=== PATIENT | male | born 1970 | race Hispanic/Latino ===

== ENCOUNTER 2017-04-19 19:29 | Inpatient (IN) | payer BC ==
[~2017-04-19] VITALS: Ht 172.7 cm; Wt 114.9 kg
[2017-04-19] MEDS ORDERED: IPRATROPIUM/ALBUTEROL SULFATE 3 ML SOLUTION IH ONE (19:45)
[2017-04-19] MEDS ORDERED: OSELTAMIVIR PHOSPHATE 75 MG CAP ONE (19:46)
[2017-04-19] MEDS ORDERED: SODIUM CHLORIDE 0.9% 1000ML 1,000 ML IV ONE (19:46)
[2017-04-19 19:52] LABS: ABG BASE EXCESS -1.5 mmol/L (-2.0-3.0); ABG HCO3 20.5 mmol/L (21.0-28.0); ABG OXYGEN SATURATION 92.2 % (95.0-99.0); ABG PCO2 28 mmHg (35-48)
[2017-04-19 20:31] LABS: BASOPHILS % (AUTO) 0.2 % (0.0-5.0); HEMATOCRIT 36.8 % (42-54); LYMPHOCYTES % (AUTO) 29.2 % (21.0-51.0); MEAN CORPUSCULAR HEMOGLOBIN 34.6 pg (27.0-33.0); MEAN CORPUSCULAR HGB CONC 35.2 g/dL (32.0-36.0); MEAN CORPUSCULAR VOLUME 98.3 fL (79-99); NEUTROPHILS % (AUTO) 51.6 % (40.0-77.0); PLATELET COUNT (AUTO) 78 K/uL (130-400); RED BLOOD CELL COUNT(AUTO) 3.74 MIL/uL (4.50-6.20); RED CELL DISTRIBUTION WIDTH 15.5 % (11.0-15.5)
[2017-04-19 20:36] LABS: ALBUMIN 2.8 g/dL (3.5-5.0); BILIRUBIN,TOTAL 0.8 mg/dL (0.2-1.0); CREATININE 1.4 mg/dL (0.5-1.5); TOTAL PROTEIN, SERUM 6.5 g/dL (6.0-8.3)
[2017-04-19] MEDS ORDERED: POTASSIUM CHLORIDE 20 MEQ ERTAB PO ONE (20:42)
[2017-04-19 21:00] LABS: B-TYPE NATRIURETIC PEPTIDE 22 pg/mL (0-100)
[2017-04-19] MEDS ORDERED: IOPAMIDOL-370 100 ML VIAL IV ONE (21:35)
[2017-04-19] MEDS ORDERED: LEVOFLOXACIN 500 MG/D5W 100 ML 100 ML ONE (21:46)
[2017-04-19] MEDS ORDERED: VANCOMYCIN 1GM+NS 250ML 250 ML IV ONE (21:47)
[2017-04-19] MEDS ORDERED: ONDANSETRON HCL 4 MG/2 ML VIAL IVP PRN (23:45)
[2017-04-19] MEDS ORDERED: POTASSIUM CHLORIDE 10% ELIXIR 20 MEQ/15 ML UDCUP PO PRN (23:45)
[2017-04-19] MEDS ORDERED: POTASSIUM CHLORIDE 20 MEQ ERTAB PO PRN (23:45)
[2017-04-19] MEDS ORDERED: LIDOCAINE HCL-MPF 1% 2ML VIAL IJ PRN (23:45)
[2017-04-19] MEDS ORDERED: POTASSIUM CHLORIDE 20MEQ/100ML 100 ML IV PRN (23:45)
[2017-04-19] MEDS ORDERED: SODIUM CHLORIDE 0.9% 1000ML 1,000 ML IV SCH (23:45)
[2017-04-19] MEDS ORDERED: GUAIFENESIN-DM 200/20 MG 10 ML PO PRN (23:45)
[2017-04-19] MEDS ORDERED: CLONIDINE HCL 0.1 MG TABLET PO PRN (23:45)
[2017-04-19] MEDS ORDERED: ACETAMINOPHEN 325 MG TAB PO PRN ×2 (23:45)
[2017-04-20 00:30] VITALS: BP 118/67
[2017-04-20] MEDS: AZITHROMYCIN 500MG+NS 250ML 250 ML IV SCH ×2 (01:28→23:58)
[2017-04-20] MEDS: CEFTRIAXONE SODIUM 1 GM IVP SCH ×2 (01:28→23:58)
[2017-04-20 04:00] VITALS: BP 106/59
[2017-04-20 05:07] LABS: HEMATOCRIT 33.2 % (42-54); MEAN CORPUSCULAR HEMOGLOBIN 33.4 pg (27.0-33.0); MEAN CORPUSCULAR VOLUME 98.3 fL (79-99); PLATELET COUNT (AUTO) 49 K/uL (130-400); RED BLOOD CELL COUNT(AUTO) 3.37 MIL/uL (4.50-6.20); RED CELL DISTRIBUTION WIDTH 15.9 % (11.0-15.5); WHITE BLOOD COUNT (AUTO) 3.7 K/uL (4.8-10.8)
[2017-04-20 05:31] LABS: CREATININE 1.2 mg/dL (0.5-1.5); POTASSIUM 3.7 mmol/L (3.5-5.1)
[2017-04-20] MEDS ORDERED: SODIUM CHLORIDE 3% FOR INHALATION 4 ML/AMP VIAL.NEB IH ONE (07:21)
[2017-04-20 07:54] VITALS: BP 101/58
[2017-04-20 08:08] LABS: ABG BASE EXCESS -0.4 mmol/L (-2.0-3.0); ABG HCO3 22.8 mmol/L (21.0-28.0); ABG OXYGEN SATURATION 96.8 % (95.0-99.0); ABG PCO2 34 mmHg (35-48)
[2017-04-20] MEDS: FAMOTIDINE 20MG TAB 20 MG TAB PO SCH ×2 (08:45→20:26)
[2017-04-20] MEDS: OSELTAMIVIR PHOSPHATE 75 MG CAP PO SCH ×2 (08:45→20:26)
[2017-04-20 11:00] VITALS: BP 99/63
[2017-04-20] MEDS: IPRATROPIUM/ALBUTEROL SULFATE 3 ML SOLUTION IH SCH ×2 (13:18→21:36)
[2017-04-20 16:41] VITALS: BP 94/52
[2017-04-20 20:00] VITALS: BP 101/56
[2017-04-21] VITALS: BP 111/57
[2017-04-21 04:00] VITALS: BP 103/63
[2017-04-21 04:24] LABS: HEMATOCRIT 32.8 % (42-54); MEAN CORPUSCULAR HEMOGLOBIN 33.9 pg (27.0-33.0); MEAN CORPUSCULAR VOLUME 99.8 fL (79-99); PLATELET COUNT (AUTO) 41 K/uL (130-400); RED BLOOD CELL COUNT(AUTO) 3.29 MIL/uL (4.50-6.20); WHITE BLOOD COUNT (AUTO) 3.5 K/uL (4.8-10.8)
[2017-04-21 04:31] LABS: POTASSIUM 3.7 mmol/L (3.5-5.1)
[2017-04-21 07:00] VITALS: BP 113/62
[2017-04-21] MEDS: IPRATROPIUM/ALBUTEROL SULFATE 3 ML SOLUTION IH SCH ×2 (07:01→13:14)
[2017-04-21] MEDS: FAMOTIDINE 20MG TAB 20 MG TAB PO SCH (08:23)
[2017-04-21] MEDS: OSELTAMIVIR PHOSPHATE 75 MG CAP PO SCH (08:23)
[2017-04-21 11:00] VITALS: BP 101/53
[2017-04-21] MEDS ORDERED: LEVO500T2 PO (11:29)
[2017-04-21] MEDS ORDERED: OSEL75 PO (11:29)
[2017-04-21 16:00] VITALS: BP 100/59
== END 2017-04-21 18:05 | disposition home or self-care (01) | DRG 194 ==
LOC: EDH 19:29 → EDHIP 22:13 → 3CH 23:19
PROVIDERS: ADMIT Internal Medicine; ATTEND Internal Medicine
DX: J10.00 Influenza due to other identified influenza virus with unspecified type of pneumonia (principal); D61.818 Other pancytopenia; D69.59 Other secondary thrombocytopenia; C90.01 Multiple myeloma in remission; R09.02 Hypoxemia; E87.6 Hypokalemia; Z87.01 Personal history of pneumonia (recurrent); Z86.73 Personal history of transient ischemic attack (TIA), and cerebral infarction without residual deficits; Z28.21 Immunization not carried out because of patient refusal; Z79.899 Other long term (current) drug therapy
CPT/HCPCS: 36415; 36600; 71045; 71275; 80048; 80053; 80339; 82803; 82948; 83605; 83880; 84484; 85025; 85027; 85378; 87040; 87071; 87205; 93005; 93970; 94640; 94664; J0456; J0696; J1956; J3370; J7030; Q9967

== ENCOUNTER 2018-11-21 05:40 | Day surgery (SDC) | payer BC ==
[~2018-11-21] VITALS: Ht 167.6 cm; Wt 117.9 kg
[~2018-11-21 05:40] MED LIST: ACYC400T PO; ASPI-555 PO; DEXA4TAB PO; IXAZ4CAP PO; LENA10CA PO; SODIUM CHLORIDE 0.9% 1000ML 1,000 ML IV ONE
[2018-11-21 06:25] VITALS: BP 114/72
[2018-11-21 06:31] LABS: BASOPHILS % (AUTO) 0.4 % (0.0-5.0); EOSINOPHILS % (AUTO) 1.7 % (0.0-8.0); HEMATOCRIT 38.2 % (42-54); LYMPHOCYTES % (AUTO) 40.7 % (21.0-51.0); MEAN CORPUSCULAR HEMOGLOBIN 34.4 pg (27.0-33.0); MEAN CORPUSCULAR HGB CONC 34.1 g/dL (32.0-36.0); MEAN CORPUSCULAR VOLUME 100.8 fL (79-99); MONOCYTES % (AUTO) 14.6 % (3.0-13.0); NEUTROPHILS % (AUTO) 42.6 % (40.0-77.0); NUCLEATED RED BLOOD CELLS 0.1 % (0.0-0.19); PLATELET COUNT (AUTO) 116 K/uL (130-400); RED CELL DISTRIBUTION WIDTH 14.7 % (11.0-15.5); WHITE BLOOD COUNT (AUTO) 4.8 K/uL (4.8-10.8)
[2018-11-21] MEDS ORDERED: PROPOFOL 10 MG/ML 20ML VIAL IV ONE ×3 (06:38→08:00)
[2018-11-21] MEDS ORDERED: LIDOCAINE HCL 1% 20 ML VIAL ONE (06:38)
[2018-11-21 08:17] VITALS: BP 93/33
[2018-11-21 08:22] VITALS: BP 93/60
[2018-11-21 08:27] VITALS: BP 99/57
[2018-11-21 08:35] VITALS: BP 110/69
== END 2018-11-21 08:45 | disposition home or self-care (01) ==
LOC: DAH 05:40 → ENDO 05:40
PROVIDERS: ATTEND Internal Medicine
DX: K63.5 Polyp of colon (principal); K57.30 Diverticulosis of large intestine without perforation or abscess without bleeding; Z90.02 Acquired absence of larynx; E66.9 Obesity, unspecified; Z68.41 Body mass index [BMI] 40.0-44.9, adult; Z79.82 Long term (current) use of aspirin; Z79.899 Other long term (current) drug therapy; Z83.3 Family history of diabetes mellitus
CPT/HCPCS: 36415; 45380; 45381; 85025; A4606; J2704 ×3; J7030